=== PATIENT | male | born 1975 | race African-American/Black ===

== ENCOUNTER 2016-09-13 17:24 | Emergency (ER) ==
[2016-09-13] MEDS ORDERED: FLEXERIL PO ONE (18:42)
[2016-09-13] MEDS ORDERED: NORCO-7.5 PO ONE (18:42)
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
[2016-09-13 19:33] LABS: MANUAL DIFF NEEDED? NO
[2016-09-13 19:46] LABS: BASO% 0.4 % (0.0-0.8); EOS# 0.26 X1000 (0.0-0.7); EOS% 3.2 % (0.0-10.0); HEMATOCRIT 41.2 % (42.0-52.0); HEMOGLOBIN 13.2 g/dL (14.0-18.0); IMM GRAN# 0.02 X1000 (0.0-0.04); IMM GRAN% 0.2 % (0.0-0.5); LYMPH# 3.07 X1000 (1.2-3.4); LYMPH% 38.3 % (20.5-51.1); MCH 28.8 PG (27-31); MCV 89.8 FL (81-99); MONO# 0.86 X1000 (0.11-0.59); MONO% 10.7 % (1.7-9.3); MPV 10.1 FL (7.4-10.4); NEUT% 47.2 % (42.2-75.2); PLT 266 X1000 (130-400); RBC 4.59 XMIL (4.7-6.1)
[2016-09-13 19:58] LABS: AGAP 11; ALBUMIN 4.4 g/dL (3.5-5.0); ALKALINE PHOSPHATASE 61 U/L (32-122); BUN 13 mg/dL (8-22); CALCIUM 9.2 mg/dL (8.8-10.2); CHLORIDE 101 mmol/L (98-107); COSMO 277; GOT 28 U/L (10-34); GPT 32 U/L (10-44); POTASSIUM 3.5 mmol/L (3.5-5.1); SODIUM 139 mmol/L (136-145); TCO2 28 mmol/L (25-35); TOTAL PROTEIN 8.8 g/dL (6.3-8.3)
[2016-09-13 20:56] VITALS: BP 152/102
--- NOTE | 2016-09-14 10:55 | Diag Imaging Result Document ---
PROCEDURE NAME: PELVIS - 09/13/2016 AP PELVIS: INDICATION: Left anterior pelvic pain. FINDINGS: A surgical clip projects over the lower sacrum. No fracture or destructive lesion is appreciated. The joint spaces are maintained. No sacroiliitis. Surgical clips also project over the left iliac wing. IMPRESSION: No acute abnormalities are appreciated.
== END 2016-09-13 20:56 | disposition home or self-care (01) ==
LOC: P.ED 17:24
DX: T14.8 Other injury of unspecified body region (principal); M25.552 Pain in left hip; M54.9 Dorsalgia, unspecified; M79.652 Pain in left thigh; R11.2 Nausea with vomiting, unspecified; Z98.84 Bariatric surgery status
CPT/HCPCS: 72170; 80053; 85025; 85379; 99284